=== PATIENT | male | born 1955 | race Caucasian/White ===

== ENCOUNTER → 2017-01-28 | Day surgery (SDC) | payer BC ==
[~2017-01-28] MED LIST: ASPIRIN PO; LOC PO; NAPROSYN500 MG PO; NORVASC10 MG PO; VALSARTAN-HCTZ1 EAC3 PO; VITAMIN D-32000 UNI1 PO
--- NOTE | ~2017-01-28 | OR ---
Unit #: [id number] #: [id number] Patient: NATHANIEL ATKINS [id number] [address] [address] [id number] O MR#: [id number] NAME: NATHANIEL ATKINS ROOM: Date of Procedure: 01/28/2017 Admission Date: 01/28/2017 Surgeon: Robinson Flores M.D. : 1955 Attending Physician: Robinson Flores M.D. Primary Care Physician: Julio Morin M.D. OPERATIVE REPORT PRIMARY CARE PHYSICIAN Julio Morin M.D. PREOPERATIVE DIAGNOSES The patient has personal history of colon polyps and has come for surveillance colonoscopy. PROCEDURES PERFORMED Colonoscopy and polypectomy. POSTOPERATIVE DIAGNOSES 1. The patient had 3 small sessile polyps in the mid and distal transverse colon. These were removed using snare polypectomy. The polyps were 3 to 5 mm each and were removed and retrieved and sent for histology. 2. Mild sigmoid and descending colon diverticulosis. 3. Rest of the examination up to cecum was normal. The quality of the prep was excellent. RECOMMENDATIONS Follow up results of polyp histology. Consider repeat colonoscopy in 5 years. SEDATION USED MAC. DESCRIPTION OF PROCEDURE Following detailed explanation of potential risks and complications of a colonoscopy, namely perforation, bleeding, and complications related to sedation, the patient was brought to GI lab and laid in the left lateral decubitus position. A digital rectal examination was performed, which was normal. Lubricated tip of the Olympus video colonoscope was inserted through the anus and advanced under direct vision. The scope was advanced and passed up to sigmoid into descending colon. Scant small diverticula were noted in this area. The scope tip was then navigated all the way up to cecum with visualization of ileocecal valve and the appendiceal orifice. Preparation was excellent with good visualization and photodocumentation was obtained. Successive segments of the colonic mucosa were examined upon withdrawal. The patient was noted to have 3 diminutive small polyps in the transverse colon. All of these were removed using snare polypectomy. They were retrieved and sent for histology. No additional polyps noted. Other than the scant diverticula seen in the left side, no other abnormalities were found. The patient did Unit #: [id number] #: [id number] Patient: NATHANIEL ATKINS not have any hemorrhoids at anal verge. He tolerated the procedure without any postprocedure complications. Dictated by... Armand Acosta/erica TD: 01/28/2017 23:12 JOB #: [id number] OPERATIVE REPORT Page 1 of 1 X Robinson Flores MD X PROCEDURE OPERATIVE NOTE
== END | disposition home or self-care (01) ==
LOC: COPS 08:17
PROVIDERS: Internal Medicine Gastroenterology
PROC: 0DBL8ZX Excision of Transverse Colon, Via Natural or Artificial Opening Endoscopic, Diagnostic (ICD-10-PCS; principal; 2017-01-28 09:30)
DX: Z12.11 Encounter for screening for malignant neoplasm of colon (principal); D12.3 Benign neoplasm of transverse colon; K57.30 Diverticulosis of large intestine without perforation or abscess without bleeding; I10 Essential (primary) hypertension; K25.9 Gastric ulcer, unspecified as acute or chronic, without hemorrhage or perforation; J45.909 Unspecified asthma, uncomplicated; G47.30 Sleep apnea, unspecified; Z79.899 Other long term (current) drug therapy; Z87.442 Personal history of urinary calculi; Z87.09 Personal history of other diseases of the respiratory system
CPT/HCPCS: 88305